=== PATIENT | male | born 1955 | race Caucasian/White ===

== ENCOUNTER 2016-08-26 12:59 | Emergency (ER) | payer OTHER ==
--- NOTE | 2016-08-26 13:06 | EDPHY ---
H & P HPI/ROS: HPI CHIEF COMPLAINT: Tongue swelling, shortness of breath HISTORY OF PRESENT ILLNESS: This patient is a 60-year-old male, significant past medical history for alcohol withdrawal induced seizures, benzo withdrawal seizures, encephalopathy, tardive dyskinesia, pulmonary embolism, PTSD, COPD, CVA, hyponatremia presents to the emergency room by EMS after he called 911 for shortness of breath and tongue swelling. Upon arrival EMS or evaluated and he had clear lungs was in no respiratory distress they did feel that his tongue was slightly swollen they did give him IM epinephrine 0.3 mg as well as 125 mg IV Solu-Medrol. Patient was brought to the ER in stable condition. No respiratory distress. Patient endorses having allergic reactions" when he runs out of his benzos. Upon arrival to the emergency room and agreed the ambulance had ER room 15, the patient is resting comfortably has clear lungs he is on his baseline 2 L nasal cannula oxygen, there is no significant swelling noted to his tongue does appear somewhat prominent however unclear if this is normal tongue or not. He does tell me that he did feel better after epinephrine and Solu-Medrol. He has no stridor he has clear lung sounds he has good air movement and his oxygen level is appropriate. Past Medical History: Extensive medical history including withdrawal seizures from alcohol and benzos, chronic encephalopathy, pulmonary embolism on Xarelto, tardive dyskinesia, CVA, hyponatremia, PTSD, COPD, CHF, oxygen dependent 2 L, benzo dependency Past Surgical History: Surgery for ulcers Social History: History of alcohol abuse Family History: Noncontributory ROS REVIEW OF SYSTEMS: A comprehensive 10 point review of systems is otherwise negative aside from elements mentioned in the history of present illness. Exam Constitutional appears well, nontoxic, triage nursing summary reviewed, vital signs reviewed, awake/alert. Eyes normal conjunctivae and sclera, EOMI, PERRLA. HENT oropharynx: uvula is midline, there is no stridor, tongue does not have asymmetrical swelling, soft palate normal, tongue does appear somewhat prominent however unclear if this is baseline, normal inspection, atraumatic, moist mucus membranes, no epistaxis, neck supple/ no meningismus, no raccoon eyes. Respiratory clear to auscultation bilaterally, normal breath sounds, no respiratory distress, no wheezing. Cardiovascular rate normal, regular rhythm, no murmur, no edema, distal pulses normal. Gastrointestinal soft, non-tender, no rebound, no guarding, normal bowel sounds, no distension, no pulsatile mass. Genitourinary no CVA tenderness. Musculoskeletal no midline vertebral tenderness, full range of motion, no calf swelling, no tenderness of extremities, no meningismus, good pulses, neurovascularly intact. Skin pink, warm, & dry, no rash, skin atraumatic. Neurologic awake, alert and oriented x 3, AAOx3, moves all 4 extremities equally, motor intact, sensory intact, CN II-XII intact, normal cerebellar, normal vision, dysarthric at baseline Psychiatric normal mood/affect. Heme/Lymph/Immune no lymphadenopathy. Differential Diagnosis: Includes but is not limited to in a particular order, benzo withdrawal, angioedema, allergic reaction, electrolyte abnormality, CHF, COPD Medical Decision Making: this patient had an IV established will obtain blood work, but placed on a full monitoring specialist, he received epinephrine EN route by EMS as well as Solu- Medrol he will be given 20 mg IV Pepcid in case this allergic reaction. Will monitor him very closely for further tongue swelling or progression of allergic reaction. Will have blood work, EKG, chest x-ray. Re-evaluation: EKG interpretation by me on record in [facility] system. Impression time of EKG 1341, this is sinus rhythm rate of 75. No acute ischemic changes appreciated. Specifically no ST elevation ST depression T-wave abnormalities normal EKG. 1359: re-evaluation at this time this patient is resting comfortably he does feel better after 0.5 mg IV Ativan. there has been no further progression of his tongue swelling, no stridor, no trouble breathing he has maintained a normal pulse ox on the monitoring specialist with supplemental oxygen at his baseline of 2 L. patient is resting comfortably denies chest pain or shortness of breath at this time. He does tell me that he has ran out of his Valium is requesting that I refill his Valium prescription. ED x-ray chest one view: This is negative for acute cardiopulmonary disease. Image interpreted by myself. 1724: Re-examination at this time this patient is resting comfortably has no complaints. He did receive another 0.5 mg IV Ativan for anxiety. He feels much better. On re-examination in terms of allergic reaction his tongue has not had any progression of swelling, he has no stridor he has no wheezing his lungs are clear he has oxygen saturations appropriate he is requesting be discharged he has been monitored for over 4 hours there has been no recurrence of an allergic reaction. He is requesting prescription for Valium I will give him a very limited supply of Valium. Source: Patient, EMS - Personal History Tetanus Vaccine Date: < 10 years - Medical/Surgical History Hx Asthma: No Hx Chronic Respiratory Disease: Yes Hx Diabetes: No Hx Cardiac Disease: No Hx Renal Disease: No Hx Cirrhosis: No Hx Alcoholism: No Hx HIV/AIDS: No Hx Splenectomy or Spleen Trauma: No Other PMH: psychosis, PEs, depression, migraines, COPD, dementia, anxiety and benzo dependency, ulcer repair, hyperlipidemia, stroke ;Craniotomy-for mass. tardive dyskinesia, ETOH - Social History Smoking Status: Former smoker Constitutional: Initial Vital Signs Temperature (C) 36.8 C 08/26/16 13:20 Heart Rate 84 08/26/16 13:20 Respiratory Rate 18 08/26/16 13:20 Blood Pressure 151/78 H 08/26/16 13:20 O2 Sat (%) 95 08/26/16 13:20 O2 Delivery Mode Nasal Cannula O2 (L/minute) 2 Allergies/Adverse Reactions: Penicillins Allergy (Verified 07/10/16 11:37) Anaphylaxis Home Medications: Medication Instructions Recorded QUEtiapine FUMARATE [Seroquel 100 100 mg PO HS 07/15/15 mg (*)] Albuterol [Proventil Inhaler HFA 2 puffs IH DAILY PRN 01/06/16 (*)] Venlafaxine HCl [Venlafaxine 75MG 150 mg PO BID 01/19/16 (*)] Galantamine Hydrobromide [Razadyne 16 mg PO DAILY 06/12/16 8 MG (*)] diphenhydrAMINE [Benadryl 25 MG 25 mg PO Q6-8PRN PRN 06/12/16 (*)] Acetaminophen [Tylenol 325mg (*)] 325 mg PO DAILY PRN 06/19/16 Docusate Sodium [Colace 100 MG (*)] 100 mg PO BID PRN 06/19/16 Ferrous Sulfate [Ferrous Sulf 325 325 mg PO DAILY 06/19/16 MG (*)] Cyanocobalamin [Vitamin B12 (*)] 2,500 mcg PO DAILY 07/10/16 Rivaroxaban [Xarelto 10mg (*)] 20 mg PO DAILY@18 07/10/16 Benzocaine/Menthol 15/4 [Cepacol 1 ea PO PRN PRN #0 lozenge 07/24/16 Lozenge] Benzonatate [Tessalon Pearles] 100 mg PO TID PRN #0 cap 07/24/16 Diazepam [Valium 5 MG (*)] 2.5 mg PO TID #0 tab 07/24/16 LORazepam [Ativan (*)] 0.5 - 1 mg PO Q4HRS PRN #0 tab 07/24/16 Diazepam [Valium 2 MG (*)] 2 mg PO DAILY #5 tab 08/26/16 Medical Decision Making - Data Points Laboratory Results: Laboratory Results 08/26/16 13:30 08/26/16 13:30 08/26/16 13:30 WBC 13.21 H 10^3/uL (3.80-9.50) RBC 4.54 10^6/uL (4.40-6.38) Hgb 13.6 L g/dL (13.7-17.5) Hct 39.8 L % (40.0-51.0) MCV 87.7 fL (81.5-99.8) MCH 30.0 pg (27.9-34.1) MCHC 34.2 g/dL (32.4-36.7) RDW 17.0 H % (11.5-15.2) Plt Count 470 H 10^3/uL (150-400) MPV 8.8 fL (8.7-11.7) Neut % (Auto) 42.4 % (39.3-74.2) Lymph % (Auto) 47.8 H % (15.0-45.0) [place] % (Auto) 7.2 % (4.5-13.0) Eos % (Auto) 1.5 % (0.6-7.6) Baso % (Auto) 0.9 % (0.3-1.7) Nucleat RBC Rel Count 0.0 % (0.0-0.2) Absolute Neuts (auto) 5.59 10^3/uL (1.70-6.50) Absolute Lymphs (auto) 6.32 H 10^3/uL (1.00-3.00) Absolute Monos (auto) 0.95 H 10^3/uL (0.30-0.80) Absolute Eos (auto) 0.20 10^3/uL (0.03-0.40) Absolute Basos (auto) 0.12 H 10^3/uL (0.02-0.10) Absolute Nucleated RBC 0.00 10^3/uL (0-0.01) Immature Gran % 0.2 % (0.0-1.1) Immature Gran # 0.03 10^3/uL (0.00-0.10) PT 13.4 SEC (12.0-15.0) INR 1.03 (0.83-1.16) APTT 25.8 SEC (23.0-38.0) Sodium 138 mEq/L (134-144) Potassium 3.7 mEq/L (3.5-5.2) Chloride 98 mEq/L (97-110) Carbon Dioxide 27 mEq/l (22-31) Anion Gap 13 mEq/L (8-16) BUN 8 mg/dL (7-23) Creatinine 0.7 mg/dL (0.7-1.3) Estimated GFR > 60 Glucose 114 H mg/dL (70-100) Calcium 8.7 mg/dL (8.5-10.4) Magnesium 2.0 mg/dL (1.6-2.3) Total Bilirubin 0.5 mg/dL (0.1-1.4) Conjugated Bilirubin 0.3 mg/dL (0.0-0.5) Unconjugated Bilirubin 0.2 mg/dL (0.0-1.1) AST 36 IU/L (17-59) ALT 38 IU/L (21-72) Alkaline Phosphatase 107 IU/L (38-126) Creatine Kinase 57 IU/L (0-224) CK-MB (CK-2) Fraction 0.38 ng/mL (0-3.19) Troponin I < 0.012 ng/mL (0-0.034) NT-Pro-B Natriuret Pep 76 pg/mL (0-125) Total Protein 7.6 g/dL (6.3-8.2) Albumin 3.9 g/dL (3.5-5.0) Lipase 75.0 IU/L (23-300) Urine Opiates Screen NEGATIVE (NEGATIVE) Urine Barbiturates NEGATIVE (NEGATIVE) Ur Phencyclidine Scrn NEGATIVE (NEGATIVE) Ur Amphetamine Screen NEGATIVE (NEGATIVE) U Benzodiazepines Scrn NON-NEGATIVE H (NEGATIVE) Urine Cocaine Screen NEGATIVE (NEGATIVE) U Marijuana (THC) Screen NON-NEGATIVE H (NEGATIVE) Ethyl Alcohol < 10 mg/dL (0-10) Medications Given: Discontinued Medications Famotidine (Pepcid) 20 mg IVP EDNOW ONE Stop: 08/26/16 13:09 Last Admin: 08/26/16 13:59 Dose: 20 mg Sodium Chloride (Ns) 1,000 mls @ 0 mls/hr IV ONCE ONE PRN Reason: As Directed Stop: 08/26/16 13:08 Last Admin: 08/26/16 13:36 Dose: 1,000 mls Lorazepam (Ativan Injection) 0.5 mg IVP EDNOW ONE Stop: 08/26/16 13:10 Last Admin: 08/26/16 13:59 Dose: 0.5 mg Lorazepam (Ativan Injection) 0.5 mg IVP EDNOW ONE Stop: 08/26/16 17:15 Last Admin: 08/26/16 17:19 Dose: 0.5 mg Departure - Departure Disposition: Home, Routine, Self-Care Clinical Impression: Anxiety Allergic reaction Qualifiers: Encounter type: initial encounter Qualifier Code: (T78.40XA) Allergy, unspecified, initial encounter Condition: Good Instructions: Anaphylaxis (ED), Anxiety (ED) Additional Instructions: 1. stay well-hydrated drink lots of fluids. 2. return emergency room if he has any recurrence of allergic reaction this includes trouble swallowing, trouble breathing, tongue swelling or questions or concerns. [place]errals: [place],. [Primary Care Provider] - As per Instructions Prescriptions: Diazepam [Valium 2 MG (*)] 2 mg PO DAILY #5 tab
[2016-08-26] MEDS ORDERED: NS 1,000 ML IV ONE (13:07)
[2016-08-26] MEDS ORDERED: FAMOTIDINE 20 MG/2 ML SDV IVP ONE (13:08)
[2016-08-26] MEDS ORDERED: LORazepam 2 MG/ML INJ IVP ONE ×2 (13:09→17:14)
[2016-08-26 13:39] LABS: % IMMATURE GRANULYOCYTES 0.2 % (0.0-1.1); ABSOLUTE IMMATURE GRANULOCYTES 0.03 10^3/uL (0.00-0.10); ADD DIFF? NO; ADD MORPH? NO; ADD SCAN? NO; ATYPICAL LYMPHOCYTE FLAG 30 (0-99); FRAGMENT RBC FLAG 0 (0-99); HEMATOCRIT 39.8 % (40.0-51.0); HEMOGLOBIN 13.6 g/dL (13.7-17.5); LEFT SHIFT FLG 0 (0-99); LIPEMIA HEMOLYSIS FLAG 90 (0-99); MEAN CELL HEMOGLOBIN CONCENTR. 34.2 g/dL (32.4-36.7); MEAN CELL VOLUME 87.7 fL (81.5-99.8); MEAN PLATELET VOLUME 8.8 fL (8.7-11.7); PLATELET CLUMPS FLAG 0 (0-99); PLATELET COUNT 470 10^3/uL (150-400); RED BLOOD CELL COUNT 4.54 10^6/uL (4.40-6.38)
--- NOTE | 2016-08-26 13:43 | CPEKG ---
Heart Rate: 75 RR Interval: 800 P-R Interval: 188 QRSD Interval: 84 QT Interval: 396 QTC Interval: 443 P [place]: 40 QRS [place]: 51 T Wave [place]: 56 EKG Severity - NORMAL ECG - EKG Impression: SINUS RHYTHM Electronically Signed By: Daryl Forrester 28-Aug-2016 05:38:57
[2016-08-26 13:47] LABS: INR 1.03 (0.83-1.16); PROTIME(PATIENT) 13.4 SEC (12.0-15.0)
[2016-08-26 13:48] LABS: APTT 25.8 SEC (23.0-38.0)
[2016-08-26 13:56] LABS: ALANINE AMINOTRANSFERASE 38 IU/L (21-72); ALBUMIN 3.9 g/dL (3.5-5.0); ALKALINE PHOSPHATASE 107 IU/L (38-126); ANION GAP 13 mEq/L (8-16); ASPARTATE AMINOTRANSFERASE 36 IU/L (17-59); BILIRUBIN,TOTAL 0.5 mg/dL (0.1-1.4); BILIRUBIN-CONJUGATED 0.3 mg/dL (0.0-0.5); BILIRUBIN-UNCONJUGATED 0.2 mg/dL (0.0-1.1); CALCIUM 8.7 mg/dL (8.5-10.4); CARBON DIOXIDE 27 mEq/l (22-31); CHLORIDE 98 mEq/L (97-110); CREATININE 0.7 mg/dL (0.7-1.3); ETHANOL SERUM < 10 mg/dL (0-10); GLOMERULAR FILTRATION RATE > 60; GLUCOSE 114 mg/dL (70-100); POTASSIUM 3.7 mEq/L (3.5-5.2); SODIUM 138 mEq/L (134-144); TOTAL PROTEIN 7.6 g/dL (6.3-8.2)
[2016-08-26 14:06] LABS: CREATINE KINASE-MB FRACTION 0.38 ng/mL (0-3.19); TROPONIN I < 0.012 ng/mL (0-0.034)
--- NOTE | 2016-08-26 14:07 | DX ---
AP chest x-ray 1328 hours. History: Chest pain. Tongue swelling. Findings: Comparison to July 16, 2016 Heart size and pulmonary vasculature are within normal limits. There is no consolidation, effusion, o r pneumothorax. Osseous structures are unchanged. Impression: 1. No active cardiopulmonary disease seen.
[2016-08-26 14:50] VITALS: TEMP 98.6
[2016-08-26 19:01] VITALS: BP 144/75; PULSE 82; RESP 18; O2SAT 99
== END 2016-08-26 19:01 | disposition home or self-care (01) ==
LOC: EDUNIT#
DX: T78.40XA Allergy, unspecified, initial encounter (principal); F41.9 Anxiety disorder, unspecified; J44.9 Chronic obstructive pulmonary disease, unspecified; I50.9 Heart failure, unspecified; Z79.01 Long term (current) use of anticoagulants; Z86.73 Personal history of transient ischemic attack (TIA), and cerebral infarction without residual deficits; Z87.891 Personal history of nicotine dependence
CPT/HCPCS: 80305; 96374; G0480

== ENCOUNTER 2016-08-28 21:11 | Emergency (ER) | payer OTHER ==
--- NOTE | 2016-08-28 21:06 | EDPHY ---
H & P Constitutional: Initial Vital Signs Temperature (C) 36.5 C 08/28/16 21:15 Heart Rate 102 H 08/28/16 21:15 Respiratory Rate 32 H 08/28/16 21:15 Blood Pressure 112/78 08/28/16 21:15 O2 Sat (%) 99 08/28/16 21:15 O2 Delivery Mode Non-Rebreather Mask Allergies/Adverse Reactions: Penicillins Allergy (Verified 07/10/16 11:37) Anaphylaxis Home Medications: Medication Instructions Recorded QUEtiapine FUMARATE [Seroquel 100 100 mg PO HS 07/15/15 mg (*)] Albuterol [Proventil Inhaler HFA 2 puffs IH DAILY PRN 01/06/16 (*)] Venlafaxine HCl [Venlafaxine 75MG 150 mg PO BID 01/19/16 (*)] Galantamine Hydrobromide [Razadyne 16 mg PO DAILY 06/12/16 8 MG (*)] diphenhydrAMINE [Benadryl 25 MG 25 mg PO Q6-8PRN PRN 06/12/16 (*)] Acetaminophen [Tylenol 325mg (*)] 325 mg PO DAILY PRN 06/19/16 Docusate Sodium [Colace 100 MG (*)] 100 mg PO BID PRN 06/19/16 Ferrous Sulfate [Ferrous Sulf 325 325 mg PO DAILY 06/19/16 MG (*)] Cyanocobalamin [Vitamin B12 (*)] 2,500 mcg PO DAILY 07/10/16 Rivaroxaban [Xarelto 10mg (*)] 20 mg PO DAILY@18 07/10/16 Benzocaine/Menthol 15/4 [Cepacol 1 ea PO PRN PRN #0 lozenge 07/24/16 Lozenge] Benzonatate [Tessalon Pearles] 100 mg PO TID PRN #0 cap 07/24/16 Diazepam [Valium 5 MG (*)] 2.5 mg PO TID #0 tab 07/24/16 LORazepam [Ativan (*)] 0.5 - 1 mg PO Q4HRS PRN #0 tab 07/24/16 Diazepam [Valium 2 MG (*)] 2 mg PO DAILY #5 tab 08/26/16 Medical Decision Making ED Course/Re-evaluation: CHIEF COMPLAINT: Dyspnea, hypoxemia HISTORY OF PRESENT ILLNESS: This patient is a 60 year old male with a history of COPD and remote history of CVA who presents to the Emergency Department by EMS with acute dyspnea and hypoxemia beginning yesterday and worsening over time. He also reports an acute headache, numbness to both legs, photophobia, and fever and chills. He has not identified any alleviating factors; there have been no improvement to his symptoms when placed on O2 in EMS transport. He has had multiple visits to the ED in the past for chronic COPD. 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 REVIEW OF SYSTEMS: A 10 point review of systems was performed and is negative with the exception of the elements mentioned in the history of present illness. PHYSICAL EXAM: General Appearance: Alert, well hydrated, appropriate. Head: Atraumatic without scalp tenderness or obvious injury Eyes: Pupils equal, round, reactive to light and accommodation, EOMI, no trauma , no injection. Ears: Clear bilaterally, no perforation, normal landmarks Nose: Atraumatic, no rhinorrhea, clear. Throat: There is no erythema or exudates, no lesions, normal tonsils, mucus membranes moist. Neck: Supple, 2+ carotid upstroke, nontender, no lymphadenopathy. Respiratory: Decreased breath sounds bilaterally. Cardiovascular: Regular rate and rhythm, no murmurs, rubs, or gallops. Bilateral carotid, radial, dorsalis pedis, and posterior tibial pulses intact. Good capillary refill all extremities. Gastrointestinal: Abdomen is soft, nontender, non-distended, no masses, no rebound, no guarding, no peritoneal signs. Musculoskeletal: Normal active ROM of all extremities, atraumatic. Neurological: Alert, appropriate, and interactive. The patient has normal DTRs and non-focal cranial nerves, motor, sensory, and cerebellar exam. Skin: No rashes, good turgor, no nodules on palpation. Past medical history: COPD, CVA, withdrawal seizures from alcohol, chronic encephalopathy, PE, hyponatremia, PTSD, CHF, benzo dependency. Past surgical history: Surgery for ulcers. Family history: Non-contributory Social history: History of alcohol and drug abuse. ; at bedside. DIAGNOSTICS/PROCEDURES/CRITICAL CARE TIME: IMAGING: Study: X-ray of the chest Indication: Dyspnea, hypoxemia Results: X-ray of the chest was obtained. The results of the study are: unchanged from previous x-ray obtained on 08/26/2016. I viewed the images myself on the PACS system. Radiologist interpretation is pending at this time. EKG INTERPRETATION: The 12 lead EKG was interpreted by myself: Sinus rhythm, rate 95; left atrial abnormality. See hard copy and/or "tracemaster" electronic copy for interpretation. DIFFERENTIAL DIAGNOSIS: The differential diagnosis for the patient's shortness of breath and hypoxemia included but was not limited to pneumonia, myocardial infarction, acute mountain sickness, high altitude pulmonary edema, congestive heart failure, and pulmonary embolus. MEDICAL DECISION MAKING: This 60 y/o male arriving by EMS presents with decreased breath sounds bilaterally without improvement when placed on oxygen. He has an extensive medical history including COPD and CVA and reports bilateral paresthesias to his lower legs, headache, and a variety of additional complaints. He was seen here in the ED on 08/26 and had clear breath sounds a normal chest x-ray at that time. Today, EMS reports that he was hypoxemic in transport; they did not measure an O2 sat below 90% before placing him on O2 via mask in transport. He has been placed on O2 via BiPAP in the ED. Will proceed with chest x-ray. The patient is placed on youth nutritional monitor. IV established. Labs obtained. 2220: The patient is receiving his regular 2L O2 with O2 sat of 97%. Labs are unremarkable. Chest x-ray is unchanged from previous. We will continue to monitor the patient's O2 saturation. - Data Points Laboratory Results: Laboratory Results 08/28/16 21:20 08/28/16 21:20 08/28/16 21:20 WBC 12.49 H 10^3/uL (3.80-9.50) RBC 4.82 10^6/uL (4.40-6.38) Hgb 14.1 g/dL (13.7-17.5) Hct 41.7 % (40.0-51.0) MCV 86.5 fL (81.5-99.8) MCH 29.3 pg (27.9-34.1) MCHC 33.8 g/dL (32.4-36.7) RDW 16.5 H % (11.5-15.2) Plt Count 531 H D 10^3/uL (150-400) MPV 9.1 fL (8.7-11.7) Neut % (Auto) 30.9 L % (39.3-74.2) Lymph % (Auto) 56.0 H % (15.0-45.0) [place] % (Auto) 9.7 % (4.5-13.0) Eos % (Auto) 2.2 % (0.6-7.6) Baso % (Auto) 1.0 % (0.3-1.7) Nucleat RBC Rel Count 0.0 % (0.0-0.2) Absolute Neuts (auto) 3.88 10^3/uL (1.70-6.50) Absolute Lymphs (auto) 6.99 H 10^3/uL (1.00-3.00) Absolute Monos (auto) 1.21 H 10^3/uL (0.30-0.80) Absolute Eos (auto) 0.27 10^3/uL (0.03-0.40) Absolute Basos (auto) 0.12 H 10^3/uL (0.02-0.10) Absolute Nucleated RBC 0.00 10^3/uL (0-0.01) Immature Gran % 0.2 % (0.0-1.1) Immature Gran # 0.02 10^3/uL (0.00-0.10) PT 13.2 SEC (12.0-15.0) INR 1.01 (0.83-1.16) APTT 26.9 SEC (23.0-38.0) VBG Lactic Acid 1.9 mmol/L (0.7-2.1) Sodium 135 mEq/L (134-144) Potassium 4.2 mEq/L (3.5-5.2) Chloride 97 mEq/L (97-110) Carbon Dioxide 27 mEq/l (22-31) Anion Gap 11 mEq/L (8-16) BUN 10 mg/dL (7-23) Creatinine 0.8 mg/dL (0.7-1.3) Estimated GFR > 60 Glucose 111 H mg/dL (70-100) Calcium 9.7 mg/dL (8.5-10.4) Total Bilirubin 0.5 mg/dL (0.1-1.4) Medications Given: Discontinued Medications Albuterol/Ipratropium (Duoneb) 3 ml IH EDNOW ONE Stop: 08/28/16 21:33 Last Admin: 08/28/16 21:35 Dose: 3 ml Departure - Departure Disposition: Home, Routine, Self-Care Clinical Impression: Anxiety Condition: Good Instructions: Anxiety (ED) Additional Instructions: Return to the Emergency Department with chest pain, difficulty breathing, severe headache, or other serious concerns. Referrals: [facility] [Outside] - As per Instructions Report Scribed for: iNcho Ocasio Report Scribed by: Mirian Peterson Date of Report: 08/28/16 Time of Report: 21:08
[2016-08-28] MEDS ORDERED: IPRATROPIUM/ALBUTEROL 3 ML DEYVIAL ONE (21:25)
[2016-08-28] MEDS ORDERED: IPRATROPIUM/ALBUTEROL 3 ML DEYVIAL IH ONE (21:32)
[2016-08-28 21:33] LABS: % IMMATURE GRANULYOCYTES 0.2 % (0.0-1.1); ABSOLUTE IMMATURE GRANULOCYTES 0.02 10^3/uL (0.00-0.10); ADD DIFF? NO; ADD MORPH? NO; ADD SCAN? NO; ATYPICAL LYMPHOCYTE FLAG 20 (0-99); FRAGMENT RBC FLAG 0 (0-99); HEMATOCRIT 41.7 % (40.0-51.0); HEMOGLOBIN 14.1 g/dL (13.7-17.5); LEFT SHIFT FLG 0 (0-99); LIPEMIA HEMOLYSIS FLAG 90 (0-99); MEAN CELL HEMOGLOBIN 29.3 pg (27.9-34.1); MEAN CELL HEMOGLOBIN CONCENTR. 33.8 g/dL (32.4-36.7); MEAN CELL VOLUME 86.5 fL (81.5-99.8); MEAN PLATELET VOLUME 9.1 fL (8.7-11.7); PLATELET CLUMPS FLAG 0 (0-99); PLATELET COUNT 531 10^3/uL (150-400); RED BLOOD CELL COUNT 4.82 10^6/uL (4.40-6.38); RED CELL DISTRIBUTION WIDTH 16.5 % (11.5-15.2)
--- NOTE | 2016-08-28 21:35 | CPEKG ---
Heart Rate: 95 RR Interval: 632 P-R Interval: 160 QRSD Interval: 92 QT Interval: 352 QTC Interval: 443 P [place]: 83 QRS [place]: 67 T Wave [place]: 77 EKG Severity - ABNORMAL ECG - EKG Impression: SINUS RHYTHM EKG Impression: LEFT ATRIAL ABNORMALITY Electronically Signed By: Nicho Ocasio 28-Aug-2016 23:03:09
[2016-08-28 21:44] LABS: INR 1.01 (0.83-1.16); PROTIME(PATIENT) 13.2 SEC (12.0-15.0)
[2016-08-28 21:45] LABS: APTT 26.9 SEC (23.0-38.0)
[2016-08-28 21:53] LABS: ANION GAP 11 mEq/L (8-16); BILIRUBIN,TOTAL 0.5 mg/dL (0.1-1.4); CALCIUM 9.7 mg/dL (8.5-10.4); CARBON DIOXIDE 27 mEq/l (22-31); CHLORIDE 97 mEq/L (97-110); CREATININE 0.8 mg/dL (0.7-1.3); GLOMERULAR FILTRATION RATE > 60; GLUCOSE 111 mg/dL (70-100); POTASSIUM 4.2 mEq/L (3.5-5.2); SODIUM 135 mEq/L (134-144)
[2016-08-28 22:44] VITALS: PULSE 76; TEMP 98.6
--- NOTE | 2016-08-28 23:19 | DX ---
AP Portable Chest August 28, 2016 Indication: Sepsis. Comparison: August 26, 2016. Findings: Lungs remain clear. Heart and mediastinum are normal. Bones and soft tissues are normal for the patient's age. Impression: Nothing acute on this single view chest.
[2016-08-28] MEDS ORDERED: LORazepam 1 MG TAB ONE (23:37)
[2016-08-28 23:48] VITALS: BP 101/67; RESP 18; O2SAT 96
== END 2016-08-28 23:58 | disposition home or self-care (01) ==
LOC: EDUNIT#
DX: F41.9 Anxiety disorder, unspecified (principal); J44.9 Chronic obstructive pulmonary disease, unspecified; I50.9 Heart failure, unspecified; Z86.73 Personal history of transient ischemic attack (TIA), and cerebral infarction without residual deficits

== ENCOUNTER 2016-10-08 15:03 | Emergency (ER) | payer OTHER ==
[2016-10-08 16:42] LABS: % IMMATURE GRANULYOCYTES 0.2 % (0.0-1.1); ABSOLUTE IMMATURE GRANULOCYTES 0.02 10^3/uL (0.00-0.10); ADD DIFF? NO; ADD MORPH? NO; ADD SCAN? NO; ATYPICAL LYMPHOCYTE FLAG 20 (0-99); FRAGMENT RBC FLAG 10 (0-99); HEMATOCRIT 44.7 % (40.0-51.0); HEMOGLOBIN 15.1 g/dL (13.7-17.5); LEFT SHIFT FLG 0 (0-99); LIPEMIA HEMOLYSIS FLAG 90 (0-99); MEAN CELL HEMOGLOBIN CONCENTR. 33.8 g/dL (32.4-36.7); MEAN CELL VOLUME 88.7 fL (81.5-99.8); MEAN PLATELET VOLUME 8.8 fL (8.7-11.7); PLATELET CLUMPS FLAG 20 (0-99); PLATELET COUNT 479 10^3/uL (150-400); RED BLOOD CELL COUNT 5.04 10^6/uL (4.40-6.38); RED CELL DISTRIBUTION WIDTH 15.8 % (11.5-15.2)
[2016-10-08 16:58] LABS: ANION GAP 12 mEq/L (8-16); CALCIUM 10.2 mg/dL (8.5-10.4); CARBON DIOXIDE 29 mEq/l (22-31); CHLORIDE 94 mEq/L (97-110); CREATININE 0.7 mg/dL (0.7-1.3); GLOMERULAR FILTRATION RATE > 60; GLUCOSE 87 mg/dL (70-100); POTASSIUM 4.4 mEq/L (3.5-5.2); SODIUM 135 mEq/L (134-144)
[2016-10-08] MEDS ORDERED: IOPAMIDOL (ISOVUE 370) 100 ML BTL IV ONE (17:02)
[2016-10-08 17:08] LABS: TROPONIN I < 0.012 ng/mL (0-0.034)
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
[2016-10-08 18:49] VITALS: BP 111/91; PULSE 74; RESP 18; TEMP 98.2; O2SAT 98
== END 2016-10-08 18:48 | disposition home or self-care (01) ==
LOC: EDBD → EDUNIT#
DX: R55 Syncope and collapse (principal); R09.02 Hypoxemia; R06.02 Shortness of breath; J44.9 Chronic obstructive pulmonary disease, unspecified; Z87.891 Personal history of nicotine dependence; Z86.73 Personal history of transient ischemic attack (TIA), and cerebral infarction without residual deficits
CPT/HCPCS: 70450; 71275; 72125; 99285; Q9967

== ENCOUNTER 2016-10-24 12:07 | Emergency (ER) | payer OTHER ==
--- NOTE | 2016-10-24 12:12 | EDPHY ---
HPI/HX/ROS/PE/MDM Narrative: CHIEF COMPLAINT: Dyspnea HPI: This patient is a 60 year old man, with COPD on chronic 3L supplemental oxygen, presenting with four days of increasing dyspnea. The patient recently visited [place] for 10 days. Upon returning, he has had increased difficulty getting air in and out, moderate in severity Upon EMS arrival, oxygen saturation was 98% on his chronic 3L supplemental oxygen. EMS appreciated wheezing and gave him a duo-nebulizer, which improved the wheezing. Symptoms are associated with a dry, sore throat. He denies cough, fever, or other concerns. COPD exacerbations have presented similarly in the past. He had a negative chest CTA in the ED two weeks ago. REVIEW OF SYSTEMS: Aside from elements discussed in the HPI, a comprehensive 10-point review of systems was reviewed and is negative. PMH: COPD, PE, migraines, dementia, anxiety, benzodiazepine dependency, psychosis, hyperlipidemia, CVA, ulcer repair, craniotomy for mass, alcohol abuse , tardive dyskinesis SOCIAL HISTORY: Former smoker PHYSICAL EXAM: General:Patient is alert, in no acute distress. ENT:Eyes are normal to inspection. ENT inspection normal. Neck: Normal inspection. Full range of motion. Respiratory:No respiratory distress. Breath sounds diminished bilaterally, no wheezes. Cardiovascular: Regular rate and rhythm. Strong peripheral pulses. Normal cap refill. Abdomen:The abdomen is nontender to palpation. There are no peritoneal signs. There are normal bowel sounds. Back: Normal to inspection. No tenderness to palpation. Skin: Normal color. No rash. Warm and dry. Extremities: Normal appearance. Full range of motion. Neuro: Oriented x3. Normal motor function. Normal sensory function. Repetitive tardive dyskinesia like motions of tongue are noted. ED Course: Chest x-ray was obtained. I viewed the images myself on the PACS system. My interpretation of the images is: No acute process. No infiltrate. The radiologist interpretation is pending at this time. I discussed the x-ray findings with the patient. 1300: Patient is able to swallow and drink water without problem. He received 1mg PO Ativan. MDM: This is the patient's approximately 18 visit over the last year, almost always for the same symptoms. He has had extensive evaluation in the past including evaluation by pulmonology an ENT. Most recently, his symptoms have been determined to be secondary to anxiety, particularly when he runs out of Ativan. The patient has no chest pain to suggest pulmonary embolus. I spoke with the patient and his and they are concerned that this is secondary to exposure to potential black mold several years ago. This seems inconsistent with his presentation, which seems most consistent with anxiety. The patient is maintaining a normal pulse oxygenation here in the emergency department is having no difficulty swallowing whatsoever, even though he states he is unable to swallow. I see no indication for inpatient admission at this time, nor further workup. The patient has a normal chest x-ray. - Data Points Medications Given: Discontinued Medications Lorazepam (Ativan) 1 mg PO EDNOW ONE Stop: 10/24/16 12:59 Last Admin: 10/24/16 13:15 Dose: 1 mg General Initial Vital Signs: Initial Vital Signs Temperature (C) 36.9 C 10/24/16 12:14 Heart Rate 95 10/24/16 12:14 Respiratory Rate 30 H 10/24/16 12:14 Blood Pressure 132/74 H 10/24/16 12:14 O2 Sat (%) 95 10/24/16 12:14 O2 Delivery Mode Nasal Cannula O2 (L/minute) 3 Allergies/Adverse Reactions: Penicillins Allergy (Verified 07/10/16 11:37) Anaphylaxis Home Medications: Medication Instructions Recorded QUEtiapine FUMARATE [Seroquel 100 100 mg PO HS 07/15/15 mg (*)] Albuterol [Proventil Inhaler HFA 2 puffs IH DAILY PRN 01/06/16 (*)] Venlafaxine HCl [Venlafaxine 75MG 150 mg PO BID 01/19/16 (*)] Galantamine Hydrobromide [Razadyne 16 mg PO DAILY 06/12/16 8 MG (*)] diphenhydrAMINE [Benadryl 25 MG 25 mg PO Q6-8PRN PRN 06/12/16 (*)] Acetaminophen [Tylenol 325mg (*)] 325 mg PO DAILY PRN 06/19/16 Docusate Sodium [Colace 100 MG (*)] 100 mg PO BID PRN 06/19/16 Ferrous Sulfate [Ferrous Sulf 325 325 mg PO DAILY 06/19/16 MG (*)] Cyanocobalamin [Vitamin B12 (*)] 2,500 mcg PO DAILY 07/10/16 Rivaroxaban [Xarelto 10mg (*)] 20 mg PO DAILY@18 07/10/16 Benzocaine/Menthol 15/4 [Cepacol 1 ea PO PRN PRN #0 lozenge 07/24/16 Lozenge] Benzonatate [Tessalon Pearles] 100 mg PO TID PRN #0 cap 07/24/16 Diazepam [Valium 5 MG (*)] 2.5 mg PO TID #0 tab 07/24/16 LORazepam [Ativan (*)] 0.5 - 1 mg PO Q4HRS PRN #0 tab 07/24/16 Diazepam [Valium 2 MG (*)] 2 mg PO DAILY #5 tab 08/26/16 Departure - Departure Disposition: Home, Routine, Self-Care Clinical Impression: Dyspnea Qualifiers: Dyspnea type: shortness of breath Qualified Code(s): R06.02 - Shortness of breath Instructions: Dyspnea (ED) Additional Instructions: Follow-up with your primary doctor this week. Return to the Emergency Department for fever, chest pain, shortness of breath, or other worsening of condition. Referrals: [facility] [Other] - As per Instructions Emory Orozco MD [Medical Doctor] - As per Instructions (Pulmonology) Report Scribed for: Gumaro Vivar Report Scribed by: Ernestina Ac Date of Report: 10/24/16 Time of Report: 12:16 Physician Review and Approval Statement: Portions of this note were transcribed by an ED scribe. I personally performed the history, physical exam, and medical decision making; and confirm the accuracy of the information in the transcribed note.
[2016-10-24 12:16] VITALS: TEMP 98.4
[2016-10-24] MEDS ORDERED: LORazepam 1 MG TAB PO ONE (12:58)
[2016-10-24 13:32] VITALS: BP 115/80; PULSE 71; RESP 18; O2SAT 100
== END 2016-10-24 13:35 | disposition home or self-care (01) ==
LOC: EDUNIT#
DX: R06.02 Shortness of breath (principal); J44.9 Chronic obstructive pulmonary disease, unspecified; Z86.73 Personal history of transient ischemic attack (TIA), and cerebral infarction without residual deficits; Z87.891 Personal history of nicotine dependence

== ENCOUNTER 2016-11-06 18:19 | Emergency (ER) | payer OTHER ==
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
[2016-11-06 18:32] VITALS: TEMP 98.1; O2SAT 100
[2016-11-06] MEDS ORDERED: LORazepam 1 MG TAB ONE (18:51)
[2016-11-06] MEDS ORDERED: LORazepam 1 MG TAB PO ONE (18:53)
[2016-11-06] MEDS ORDERED: HYDROCOD/APAP 5/325 PREPACK#6 BTL TAKEHOME ONE (19:01)
[2016-11-06] MEDS ORDERED: OXYCODONE/APAP 5/325MG PREPACK#4 BTL TAKEHOME ONE (19:05)
[2016-11-06 19:39] VITALS: BP 133/84; PULSE 92; RESP 18
== END 2016-11-06 19:25 | disposition home or self-care (01) ==
LOC: EDUNIT#
DX: T20.24XA Burn of second degree of nose (septum), initial encounter (principal); X76.XXXA Intentional self-harm by smoke, fire and flames, initial encounter

== ENCOUNTER 2016-11-14 12:25 | Emergency (ER) | payer OTHER ==
[2016-11-14] MEDS ORDERED: predniSONE 20 MG TAB PO ONE (13:08)
[2016-11-14] MEDS ORDERED: LORazepam 2 MG/ML INJ IVP ONE (13:08)
--- NOTE | 2016-11-14 13:10 | EDPHY ---
HPI/HX/ROS/PE/MDM Narrative: CHIEF COMPLAINT: Dyspnea HISTORY OF PRESENT ILLNESS: This patient is a 61 year old man, with a history of COPD on chronic supplemental oxygen, presenting with acute dyspnea, mild- moderate in severity. The patient got an oxygen concentrator one week ago ( replacing his oxygen tank) so that he could fly to [place] tomorrow with his oxygen. His oxygen concentrator stopped working last night and into today. Subsequently, he felt dyspneic and shortness of breath. He fell in the shower this morning, which he attributes to not having enough oxygen. He struck his head in this fall, but denies loss of consciousness. He feels improved since being in the emergency department with supplemental oxygen here. He is not on any inhalers or medications for management of his COPD. He denies fever or recent illness. He does report some cough yesterday. He has chronic tongue edema , which is treated with Ativan and Benadryl. He ran out of Benadryl yesterday. REVIEW OF SYSTEMS: Aside from elements discussed in the HPI, a comprehensive 10-point review of systems was reviewed and is negative. PAST MEDICAL HISTORY: COPD, CVA x 3 SOCIAL HISTORY: , medical care provided by the [facility] VITAL SIGNS: Reviewed by me GENERAL: Anxious. Well-developed, well-nourished, resting comfortably in no respiratory distress. HEENT: Atraumatic. Eyes: No icterus, no injection. Mouth: Mild tongue swelling. Angioedema of the uvula. Moist mucous membranes. No erythema or lesions. Neck: supple with no adenopathy. No stridor auscultated. LUNGS: Diminished breath sounds bilaterally, no wheezes, rhonchi or rales. CARDIAC: Regular rate and rhythm, no rubs, murmurs or gallops. ABDOMEN: Soft, nontender, nondistended, bowel sounds normal. BACK: No CVA tenderness. EXTREMITIES: No trauma. No edema. Range of motion is normal throughout. NEURO: Alert and oriented, grossly nonfocal. SKIN: Warm and dry, no rash. PSYCHIATRIC: Normal mentation, anxious Portions of this note were transcribed by a medical doctor. I personally performed a history, physical exam, medical decision making, and confirmed accuracy of information the transcribed note. ED Course: The patient's oxygen saturation is 100% on 4L oxygen. There is tongue swelling and uvular angioedema, which is a known longstanding issue for him. 60mg Prednisone PO ordered for swelling management. 1mg PO Ativan ordered for anxiety relief. Chest x-ray, by my interpretation, shows no change from previous, no acute findings. This is a 61-year-old gentleman well known to the emergency department and to myself who has a history anxiety which produces tongue swelling and swelling of the uvula. This condition is managed by Ativan. He also has COPD which is unable to be treated with bronchodilators as a increase his agitation and anxiety. He reports being in his typical state of health with the exception of feeling quite anxious when he realized as oxygen concentrator was no longer working appropriately. Consultation with the case picker Ke was undertaken in the emergency department. The is making arrangements for the patient to have a new concentrator provided. Patient feels comfortable being discharged home long as he has a prescription for Ativan, as well as a new oxygen concentrator. I also provided prescription for Benadryl to help manage the acute swelling secondary to the acute anxiety secondary to the concentrator malfunction. MDM: Differential diagnosis for the patient's shortness of breath was considered including but not limited to pulmonary infectious processes, COPD exacerbation, hypoxemia, pulmonary emboli, pulmonary edema, congestive heart failure, and cardiac causes. - Data Points Medications Given: Discontinued Medications Diphenhydramine HCl (Benadryl) 25 mg PO EDNOW ONE Stop: 11/14/16 13:13 Last Admin: 11/14/16 13:23 Dose: 25 mg Lorazepam (Ativan) 1 mg PO EDNOW ONE Stop: 11/14/16 13:13 Last Admin: 11/14/16 13:24 Dose: 1 mg Prednisone (Prednisone) 60 mg PO EDNOW ONE Stop: 11/14/16 13:09 Last Admin: 11/14/16 13:24 Dose: 60 mg General Time Seen by Provider: 11/14/16 12:45 Initial Vital Signs: Initial Vital Signs Temperature (C) 36.9 C 11/14/16 12:38 Heart Rate 79 11/14/16 12:38 Respiratory Rate 17 11/14/16 12:38 Blood Pressure 134/67 H 11/14/16 12:38 O2 Sat (%) 96 11/14/16 12:38 O2 Delivery Mode Simple Mask O2 (L/minute) 4 Allergies/Adverse Reactions: Penicillins Allergy (Verified 11/14/16 12:38) Anaphylaxis Home Medications: Medication Instructions Recorded QUEtiapine FUMARATE [Seroquel 100 100 mg PO HS 07/15/15 mg (*)] Albuterol [Proventil Inhaler HFA 2 puffs IH DAILY PRN 01/06/16 (*)] Venlafaxine HCl [Venlafaxine 75MG 150 mg PO BID 01/19/16 (*)] Galantamine Hydrobromide [Razadyne 16 mg PO DAILY 06/12/16 8 MG (*)] diphenhydrAMINE [Benadryl 25 MG 25 mg PO Q6-8PRN PRN 06/12/16 (*)] Acetaminophen [Tylenol 325mg (*)] 325 mg PO DAILY PRN 06/19/16 Docusate Sodium [Colace 100 MG (*)] 100 mg PO BID PRN 06/19/16 Ferrous Sulfate [Ferrous Sulf 325 325 mg PO DAILY 06/19/16 MG (*)] Cyanocobalamin [Vitamin B12 (*)] 2,500 mcg PO DAILY 07/10/16 Rivaroxaban [Xarelto 10mg (*)] 20 mg PO DAILY@18 07/10/16 Benzocaine/Menthol 15/4 [Cepacol 1 ea PO PRN PRN #0 lozenge 07/24/16 Lozenge] Benzonatate [Tessalon Pearles] 100 mg PO TID PRN #0 cap 07/24/16 Diazepam [Valium 5 MG (*)] 2.5 mg PO TID #0 tab 07/24/16 LORazepam [Ativan (*)] 0.5 - 1 mg PO Q4HRS PRN #0 tab 07/24/16 Diazepam [Valium 2 MG (*)] 2 mg PO DAILY #5 tab 08/26/16 Hydrocodone/APAP 5/325 [Eva 1 - 2 each PO Q4-6PRN PRN #20 tab 11/06/16 5/325] oxyCODONE IR [Oxycodone Ir (*)] 5 - 10 mg PO Q6 PRN #20 tab 11/06/16 LORazepam [Ativan (*)] 1 mg PO BID #12 tab 11/14/16 predniSONE [prednisone 10mg (RX)] 40 mg PO DAILY 3 Days 11/14/16 Departure - Departure Disposition: Home, Routine, Self-Care Clinical Impression: Dependence on continuous supplemental oxygen, Anxiety COPD (chronic obstructive pulmonary disease) Qualifiers: COPD type: unspecified COPD Qualified Code(s): J44.9 - Chronic obstructive pulmonary disease, unspecified Dyspnea Qualifiers: Dyspnea type: unspecified Qualified Code(s): R06.00 - Dyspnea, unspecified Condition: Good Instructions: Using Oxygen at Home (ED), COPD (Chronic Obstructive Pulmonary Disease) (ED) Additional Instructions: Take Benadryl as directed over the counter. 25 mg 2 to 3 times a day as needed for swelling of the tongue. Take the Ativan and Prednisone as prescribed. Return to the Emergency Department for fever, chest pain, shortness of breath, or other worsening of condition. Referrals: MIR GOYAL [Other] - As per Instructions Stand Alone Forms: Airline Excuse Prescriptions: LORazepam [Ativan (*)] 1 mg PO BID #12 tab predniSONE [prednisone 10mg (RX)] 40 mg PO DAILY 3 Days Report Scribed for: Gretel Charles Report Scribed by: Ernestina Ac Date of Report: 11/14/16 Time of Report: 13:10
[2016-11-14] MEDS ORDERED: diphenhydrAMINE 25 MG CAP PO ONE (13:12)
[2016-11-14] MEDS ORDERED: LORazepam 1 MG TAB PO ONE (13:12)
[2016-11-14 15:27] VITALS: BP 126/70; PULSE 69; RESP 18; TEMP 97.9; O2SAT 98
== END 2016-11-14 15:33 | disposition home or self-care (01) ==
LOC: EDUNIT#
DX: J44.9 Chronic obstructive pulmonary disease, unspecified (principal); F41.9 Anxiety disorder, unspecified; Z79.01 Long term (current) use of anticoagulants; Z86.73 Personal history of transient ischemic attack (TIA), and cerebral infarction without residual deficits; Z99.81 Dependence on supplemental oxygen
CPT/HCPCS: 71020; 99284; J2060